=== PATIENT | female | born 1960 | race Caucasian/White ===

== ENCOUNTER → 2023-07-19 | Outpatient (REF) | payer MEDICARE, MEDICAID ==
[2023-07-19 04:57] LABS: ALBUMIN 3.8 g/dL (3.5-5.0)
[2023-07-19 04:58] LABS: CALCIUM 9.2 mg/dL (8.3-10.5)
[2023-07-19 04:59] LABS: TOTAL PROTEIN 6.2 g/dL (6.4-8.3)
[2023-07-19 05:07] LABS: HEMATOCRIT 30.6 % (37.0-47.0); HEMOGLOBIN 9.6 g/dL (12.5-16.0); MEAN PLATELET VOLUME 8.9 fl (7.4-10.4); RED BLOOD COUNT 3.57 M/mm3 (4.10-5.30); WHITE BLOOD COUNT 4.1 K/mm3 (4.8-10.8)
[2023-07-19 05:16] LABS: TOTAL BILIRUBIN 0.1 mg/dL (0.2-1.2)
== END ==
LOC: LAB 03:45
PROVIDERS: Family Medicine
DX: E78.5 Hyperlipidemia, unspecified (principal); M62.81 Muscle weakness (generalized); G71.12 Myotonia congenita; M41.9 Scoliosis, unspecified; F32.A Depression, unspecified; Z74.1 Need for assistance with personal care; Z74.09 Other reduced mobility; K05.6 Periodontal disease, unspecified; G64 Other disorders of peripheral nervous system; L30.9 Dermatitis, unspecified

== ENCOUNTER → 2024-02-20 | Outpatient (REF) | payer MEDICARE, MEDICAID ==
[~2024-02-20] MED LIST: BENADRYL ALLERG25 M2 PO; COLACE100 M1 PO; DOCUSATE SODIUM1 TA2 PO; DRIZALMA SPRINK60 MG PO; EPITOL200 MG PO; FAMOTIDINE20 MG PO; FERATE240 MG PO; GABAPENTIN TAB600 MG PO; GOOD NEIGH1200 MG/15 PO; IBU600 MG PO; LEVOTHYROXINE100 MC2 PO; MELATONIN3 M3 PO; MORGIDOX 1X100100 MG PO; MYLANTA COAT-C355 ML PO; MYSOLINE250 M1 PO; PRAVASTATIN SOD80 MG PO; TYLENOL325 M1 PO; VITAMIN D3125 MC1 PO; WELLBUTRIN; ZYRTEC ALLERGY10 MG PO
[2024-02-20 12:03] LABS: ALBUMIN 4.4 g/dL (3.4-4.8)
[2024-02-20 12:06] LABS: TOTAL PROTEIN 6.6 g/dL (6.2-8.1)
[2024-02-20 12:08] LABS: TOTAL BILIRUBIN 0.2 mg/dL (0.2-1.2)
[2024-02-20 12:11] LABS: DIRECT BILIRUBIN 0.1 mg/dL (0.0-0.5)
== END ==
LOC: LAB 11:44
PROVIDERS: Family Medicine
DX: E78.5 Hyperlipidemia, unspecified (principal)